=== PATIENT | male | born 1990 | race Caucasian/White ===

== ENCOUNTER → 2021-01-15 | Outpatient (CLI) | payer OTHER ==
[~2021-01-15] MED LIST: IBUPROFEN800 MG PO; IPRAT-ALBUT 0.5-3 ML INH; LEVAQUIN750 MG PO; NEURONTIN 400400 MG PO; VENTOLIN HFA 66.7 GM INH
== END ==
LOC: LAB 11:39
DX: Z53.9 Procedure and treatment not carried out, unspecified reason (principal)
CPT/HCPCS: 36415